=== PATIENT | male | born 1950 | race Caucasian/White ===

== ENCOUNTER → 2016-11-29 | Outpatient (CLI) | payer BC ==
[2016-11-29 10:39] LABS: HEMOGLOBIN 16.1 g/dL (14.0-18.0); RED BLOOD COUNT 5.27 10^6/uL (4.70-6.10)
[2016-11-29 10:40] LABS: HEMATOCRIT 47.2 % (42.0-52.0); MEAN CORPUSCULAR HEMOGLOBIN 30.6 PG (27-31); MEAN CORPUSCULAR HGB CONC 34.1 g/dL (33-37); MEAN CORPUSCULAR VOLUME 89.6 FL (80-90); MEAN PLATELET VOLUME 11.2 FL (7.4-12.2)
[2016-11-29 10:50] LABS: BLOOD UREA NITROGEN 21 mg/dL (7-22); BUN/CREATININE RATIO 19.09 (6-20); CHOL/HDL RATIO 4.14 RATIO (0-4.0); EST GLOMERULAR FILTRATION > 60 (>60 ml/min/1.73m(2)); HDL CHOLESTEROL 41 mg/dL (40-150); SERUM ALBUMIN 4.7 g/dL (3.5-4.8); SERUM CHOLESTEROL 170 mg/dL (120-200); URIC ACID 5.2 mg/dl (3.8-8.5)
[2016-11-29 11:56] LABS: FREE T4 (FREE THYROXINE) 1.28 ng/dL (0.93-1.71)
== END ==
LOC: MOB LAB 09:03
PROVIDERS: ATTEND Family Medicine
DX: I10 Essential (primary) hypertension (principal); I25.10 Atherosclerotic heart disease of native coronary artery without angina pectoris; E78.00 Pure hypercholesterolemia, unspecified; E03.9 Hypothyroidism, unspecified; M10.9 Gout, unspecified; Z12.5 Encounter for screening for malignant neoplasm of prostate
CPT/HCPCS: 36415; 80053; 80061; 84439; 84443; 84550; 85027; G0103